=== PATIENT | male | born 1990 | race Caucasian/White ===

== ENCOUNTER 2018-08-18 15:03 | Emergency (ER) | payer MEDICAID, SELFPAY ==
[2018-08-18 15:19] VITALS: BP 135/70; PULSE 106; RESP 16; TEMP 36.6; O2SAT 97
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
== END 2018-08-18 16:55 | disposition home or self-care (01) ==
PROVIDERS: Emergency Provider Emergency Medicine; PCP Nurse Practitioner
DX: S60.221A Contusion of right hand, initial encounter (principal); W51.XXXA Accidental striking against or bumped into by another person, initial encounter
CPT/HCPCS: 99283; 73130; L3809

== ENCOUNTER 2018-11-26 00:54 | Outpatient (CLI) | payer MEDICAID, SELFPAY ==
--- NOTE | 2018-11-26 10:51 | DI.MRI_ITS ---
SYMPTOM/DIAGNOSIS: BACK PAIN NOT RESPONDING TO PT, PAIN CLINIC REFERRAL, RESTLESS LEGS, M54.5,M54.6,G25.81 LUMBAR SPINE MRI: The exam is limited by patient motion. T 1, T 2 and STIR sagittal, T 1 coronal and T 1 and T 2 axial sequences were performed. The vertebral bodies are well maintained in height and show normal marrow signal. The conus medullaris is grossly normal. The intervertebral discs appear intact throughout. There is no evidence of disc herniation, neural foraminal narrowing or central canal stenosis. No paraspinal masses are seen. The kidneys are unremarkable. The aorta is normal in diameter. IMPRESSION: Negative MRI of the lumbar spine.
== END 2018-11-26 01:14 ==
PROVIDERS: PCP Nurse Practitioner; Visit Provider Student in an Organized Health Care Education/Training Program
DX: M54.5 Low back pain (principal); G25.81 Restless legs syndrome; M54.6 Pain in thoracic spine
CPT/HCPCS: 72148

== ENCOUNTER 2019-04-04 06:45 | Emergency (ER) | payer MEDICAID, SELFPAY ==
[2019-04-04 06:50] VITALS: BP 141/92; PULSE 94; RESP 16; TEMP 36.6; O2SAT 96
--- NOTE | 2019-04-04 12:18 | NUR.NOTE ---
0720 pt left without being seen. stated he had to catch the [facility] bus that comes at 0730. did not want to walk home. will come back later. Nursing Note:
== END 2019-04-04 07:21 | disposition other institution (70) ==
LOC: ER 07:09
PROVIDERS: PCP Student in an Organized Health Care Education/Training Program
DX: Z53.21 Procedure and treatment not carried out due to patient leaving prior to being seen by health care provider (principal)

== ENCOUNTER 2019-05-11 09:29 | Emergency (ER) | payer MEDICAID, SELFPAY ==
[2019-05-11 09:32] VITALS: BP 144/104; PULSE 84; RESP 20; TEMP 36.8; O2SAT 98
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
== END 2019-05-11 09:56 | disposition home or self-care (01) ==
LOC: ER 09:58
PROVIDERS: Emergency Provider Emergency Medicine; PCP Student in an Organized Health Care Education/Training Program
DX: S51.012A Laceration without foreign body of left elbow, initial encounter (principal); X99.1XXA Assault by knife, initial encounter
CPT/HCPCS: 12001

== ENCOUNTER 2019-09-16 12:56 | Emergency (ER) | payer MEDICAID, SELFPAY ==
[2019-09-16 12:58] VITALS: BP 161/75; PULSE 69; RESP 18; TEMP 36.7; O2SAT 97
--- NOTE | 2019-09-16 13:04 | ED.GENADUL_ITS ---
Discharge Plan Disposition Patient Disposition: HOME Condition: Good Discharge Details Chief Complaint: DentalOral Clinical Impression: Dental infection Primary Care Provider: Coty Lopez ED Provider: Chikis Ascencio Home Meds and New Rx's Prescriptions: New clindamycin HCl 150 mg capsule 450 mg PO TID Qty: 63 RF: 0 ibuprofen 600 mg tablet 600 mg PO Q6H PRN (Reason: pain) Qty: 30 RF: 0 acetaminophen [Tylenol Extra Strength] 500 mg tablet 500 mg PO Q4H PRN (Reason: pain) Qty: 30 RF: 0 Continued buprenorphine-naloxone [Suboxone] 1 EACH film 22 mg PO DAILY RF: 0 ibuprofen 600 MG tablet 600 mg PO TID PRN PRNQty: 15 RF: 0 acetaminophen [Tylenol Extra Strength] 500 mg tablet 1,000 mg PO Q6H PRN (Reason: pain) Qty: 30 RF: 0 lamotrigine [Lamictal] 100 mg Tablet 100 mg PO DAILY RF: 0 Discharge Instructions Instructions: Dental Abscess (ED) Additional Instructions: Encourage hydration. Tylenol and/or ibuprofen as needed for discomfort. You are given a dental block here today, so hopefully last 6 to 8 hours to help with discomfort. Please take the clindamycin as prescribed. As this can cause diarrhea, please take probiotic. prevention coordinator is helping to arrange for follow-up appointment with dentist and transportation to appointments. If you develop fever/chills, increased swelling or other new/worsening symptoms please seek care urgently once again. Referrals: Coty Lopez DO [Primary Care Provider] - Discharge Data Discharge Date/Time-TO BE ENTERED AT DEPARTURE: 09/16/19 14:17 Medical Decision Making Patient is a 29-year-old male history of opiate dependence, PTSD, tobacco use, hepatitis C, ADHD, anxiety. He is presenting today with acute on chronic right upper dental pain. States that beginning last night, the pain has been quite severe. Took Tylenol a few hours ago with no improvement. Denies any fevers or chills. Worse is eating. Reports that he has a referral to [facility] for dental extraction but has not had a ride to be able to get there. Denies any difficulty breathing, shortness of breath. Is not noted any facial swelling. On exam, patient appears nontoxic. He is hypertensive at 161/75 but vital signs are otherwise normal. He does have poor dentition with a large area of erosion at the #3 tooth on the buccal side. This is the area of discomfort. Will consult with case management regarding transportation of the patient. Patient I discussed risk/benefits of dental block at length. Discussed expected procedural steps. He voiced understanding and wished to proceed. Please see procedure note. Patient was anesthetized with 1% lidocaine plain and 25% bupivacaine. He tolerated this well and had immediate relief of his symptoms. Patient will be treated with antibiotics, received his first dosing here. He has requested prescription for Tylenol and ibuprofen. He was given return precautions. Care management was involved closely had is having trouble to get him an appointment urgently with local dentist for tooth extraction. All his questions and concerns were addressed and is in agreement this plan. HPI General Mode of arrival: ambulatory . Date/Time Provider Initiated Documentation: 09/16/19 13:04 . Limitations to Documentation: no limitations . Information obtained by: patient and RN notes reviewed . History of Present Illness 29 year old M presents to the emergency department with the chief complaint of Right upper dental pain, described as severe and similar to prior episodes, with intensity rated at 10. Quality is described as stabbing, and is localized to the mouth. Patient reports no radiation. Patient started experiencing this week(s) (chronic pain with acute increase in pain this AM) and it has been constant. No relieving factors improve symptom(s), No exacerbating factors reported . Patient notes no other symptoms.; denies cough, diaphoresis, fever/chills, loss of appetite, nausea/vomiting, rash and shortness of breath. Patient did receive the following treatments prior to arrival, none Related Data Home Medications Medication Instructions Recorded Confirmed buprenorphine-naloxone [Suboxone] 22 mg PO DAILY 01/27/18 09/16/19 ibuprofen 600 mg PO TID PRN PRN #15 tab 01/27/18 09/16/19 acetaminophen [Tylenol Extra 1,000 mg PO Q6H PRN #30 tab 08/18/18 09/16/19 Strength] acetaminophen [Tylenol Extra 500 mg PO Q4H PRN #30 tab 09/16/19 Strength] clindamycin HCl 450 mg PO TID #63 cap 09/16/19 ibuprofen 600 mg PO Q6H PRN #30 tab 09/16/19 lamotrigine [Lamictal] 100 mg PO DAILY 09/16/19 09/16/19 Previous Rx's Medication Instructions Recorded ibuprofen 600 mg PO TID PRN PRN #15 tab 01/27/18 acetaminophen [Tylenol Extra 1,000 mg PO Q6H PRN #30 tab 08/18/18 Strength] acetaminophen [Tylenol Extra 500 mg PO Q4H PRN #30 tab 09/16/19 Strength] clindamycin HCl 450 mg PO TID #63 cap 09/16/19 ibuprofen 600 mg PO Q6H PRN #30 tab 09/16/19 Allergies Allergy/AdvReac Type Severity Reaction Status Date / Time prednisone AdvReac Intermediate increased Unverified 09/16/19 13:02 heart rate codeine AdvReac Mild headache/stomach Unverified 09/16/19 13:02 ache Penicillins AdvReac Mild headache/st Unverified 09/16/19 13:02 omachache clindamycin AdvReac Diarrhea Unverified 09/16/19 13:02 General Stated Complaint: DentalOral BRIAN: 4 Review of Systems Constitutional Constitutional: Reports as per HPI, Denies chills, Denies fatigue, Denies fever(s), Denies headache(s) and Denies poor appetite Eyes Eyes: Denies change in vision and Denies irritation ENT Ears, Nose, Mouth, and Throat: Reports as per HPI, Reports dental pain, Denies dysphagia, Denies dizziness, Denies dry mouth, Denies ear discharge, Denies otalgia, Reports facial pain, Denies headache(s), Denies hoarseness, Denies lip swelling, Denies nasal congestion, Denies odynophagia and Denies sore throat Cardiovascular Cardiovascular: Reports as per HPI and Denies chest pain Respiratory Respiratory: Reports as per HPI and Denies cough Gastrointestinal Gastrointestinal: Reports as per HPI, Denies dysphagia, Denies nausea, Denies odynophagia and Denies vomiting Integumentary/Breasts Skin/Breast: Reports as per HPI, Denies erythema, Denies rash and Denies skin pain Neurologic Neurologic: Reports as per HPI, Denies dizziness and Denies headache(s) Endocrine Endocrine: Denies fatigue Allergic/Immunologic Allergic/Immunologic: Denies lip swelling [facility] Medical History ADHD (attention deficit hyperactivity disorder) Anxiety Hepatitis C Opioid dependence Restless legs Tobacco abuse disorder Social History Smoking/Tobacco Use Status: Current every day Tobacco Type: cigarettes Alcohol Intake: former Drug use: Current Sobriety Substance use type: former substance user Do you feel safe at home: Yes Do you feel safe in your relationship?: Yes Exam Const General: cooperative, healthy appearing, comfortable, no acute distress, well developed and well groomed Nutritional Appearance: average body habitus and well nourished Orientation: alert and awake [facility] Head: normal to inspection, normocephalic and atraumatic Ears: hearing grossly normal bilaterally, external ears normal and TM's normal bilaterally General nose exam: external nose normal and nares normal Face and sinus: normal facial exam, sinuses nontender and face symmetric Mouth: oral mucosae normal, lip normal, tongue normal, salivary ducts normal, oropharynx normal, moist mucous membranes, no muffled voice, no trismus and No restricted motion Teeth and gingiva: poor dentition (large eroded area #3 tooth, buccal sided pain) Throat: posterior oropharynx normal, tonsils normal and uvula midline Eyes General: appearance normal, both eyes and all related structures Neck Neck: normal visual inspection, full ROM, no lymphadenopathy, supple and no anterior neck swelling Resp Effort & Inspection: normal respiratory effort, able to speak in complete sentences and no respiratory distress Auscultation: clear to auscultation bilaterally, no rales, no rhonchi and no wheezes Cardio Rate: regular rate Rhythm: regular rhythm Heart Sounds: S1 normal and S2 normal Skin General skin exam: no rashes or lesions noted Trauma: no lacerations or abrasions Neuro General: alert and awake Cognition: normal cognition Speech: speech normal Gait: normal gait Psych Appearance: grossly normal and well kempt Mental Status: mental status grossly normal Speech and Movement: speech and movement normal Course Vital Signs Vital signs: Vital Signs Temperature 36.7 C 09/16/19 12:58 Pulse 69 09/16/19 12:58 Respiratory Rate 18 09/16/19 12:58 Blood Pressure 161/75 H 09/16/19 12:58 Pulse Oximetry 97 09/16/19 12:58 Temperature 36.7 C 09/16/19 12:58 Temperature Source Skin 09/16/19 12:58 Pulse 69 09/16/19 12:58 Respiratory Rate 18 09/16/19 12:58 Respiratory Effort Non-Labored 09/16/19 13:03 Blood Pressure 161/75 H 09/16/19 12:58 Blood Pressure Position Sitting 09/16/19 12:58 Pulse Oximetry 97 09/16/19 12:58 Oxygen Delivery Method Room Air 09/16/19 12:58 Oxygen Flow Rate 0 09/16/19 12:58 Pain Level 10 09/16/19 12:58 Procedures Nerve Block Nerve Block 1: Time out performed: Yes Local Anesthetic: Lidocaine 1% and Bupivicaine 0.25% Amount of anesthesia used (mL): 1.5 Side: right Intraoral Nerve Block: supraperiosteal Procedure Successful: Yes Patient Tolerated Procedure: well Complications: none
[2019-09-16] MEDS: Clindamycin 150 MG CAP 450 MG PO (13:27)
[2019-09-16] MEDS: Ibuprofen 600 MG TAB PO (13:27)
[2019-09-16] MEDS: Bupivacaine 0.25% Pres-Free 10 ML VIAL IJ (13:28)
[2019-09-16] MEDS: Acetaminophen 500 MG TAB PO (13:28)
--- NOTE | 2019-09-16 13:41 | NUR.NOTE ---
Nursing Note: pt and provider discussed administration of clindamycin. pt reports that he thinks he had nausea and diarrhea.
== END 2019-09-16 14:17 | disposition home or self-care (01) ==
PROVIDERS: Emergency Provider Physician Assistant; PCP Student in an Organized Health Care Education/Training Program
DX: K08.89 Other specified disorders of teeth and supporting structures (principal); K04.7 Periapical abscess without sinus
CPT/HCPCS: 64400; 99283

== ENCOUNTER 2020-05-29 10:53 | Emergency (ER) | payer MEDICAID, SELFPAY ==
[2020-05-29 11:04] VITALS: BP 117/80; PULSE 84; RESP 18; TEMP 37.1; O2SAT 98
--- NOTE | 2020-05-29 11:12 | W.ED.GENAD ---
Discharge Plan Disposition Patient Disposition: AGAINST MEDICAL ADVICE Condition: Serious Discharge Details Chief Complaint: Cellulitis Clinical Impression: Cellulitis of foot, right Primary Care Provider: Coty Lopez ED Provider: Cristine Miller [place] Meds and New Rx's Prescriptions: New cephalexin 500 mg tablet 500 mg PO BID 10 Days Qty: 20 RF: 0 No Action buprenorphine-naloxone [Suboxone] 1 EACH film 22 mg PO DAILY RF: 0 ibuprofen 600 MG tablet 600 mg PO TID PRN PRNQty: 15 RF: 0 acetaminophen [Tylenol Extra Strength] 500 mg tablet 1,000 mg PO Q6H PRN (Reason: pain) Qty: 30 RF: 0 lamotrigine [Lamictal] 100 mg Tablet 100 mg PO DAILY RF: 0 ibuprofen 600 mg tablet 600 mg PO Q6H PRN (Reason: pain) Qty: 30 RF: 0 gabapentin 400 mg Capsule 400 mg PO DAILY RF: 0 gabapentin 300 mg Capsule 300 mg PO BID RF: 0 dexmethylphenidate [Focalin XR] 40 mg Capsule,Er Biphasic 50-50 40 mg PO DAILY RF: 0 Discharge Instructions Instructions: Cellulitis (ED) Additional Instructions: At this time I do recommend admission and further treatment and work-up for your right foot infection by leaving AGAINST MEDICAL ADVICE you do understand that this could be worsening disabled, worsening infection including but not limited to and loss of limb. Please take antibiotic as prescribed. Follow up with primary care provider in 3-5 days. Return to ED sooner if any worsening or concerns. Increase oral fluids. Please take Tylenol or Ibuprofen with food every 4-6 hours as needed for pain and swelling. Referrals: Coty Lopez DO [Primary Care Provider] - Discharge Data Discharge Date/Time-TO BE ENTERED AT DEPARTURE: 05/29/20 12:20 Medical Decision Making 30-year-old homeless male presents to the ER with right foot cellulitis which he reports has been getting worse for the last 2 weeks. He states that he jumped over a fence receiving a puncture wound to the right medial area of his foot over the last 24 hours increased erythema mild red streaks noted to his right inner ankle, increased pain, 2 bubbles which have popped up over the last 24 hours. He does have an open wound distally at the base of his great toe which he reports is been draining. He associated symptoms include headache, sickly feeling, denies any nausea vomiting diarrhea abdominal pain. He is a smoker and and does endorse marijuana and Suboxone use denies any other illicit drugs or alcohol. He does have a history of IV drug abuse disorder but denies any recent use. Does have a history of PTSD, restless leg syndrome, opioid dependence, hepatitis C, opioid use disorder, ADD, anxiety. Awaiting lab draw, RN was able to get IV access no labs. When discussing potential admission with patient he is declining admission at this time. Ancef IV ordered and blood cultures x2. Lorazepam 1 mg IV ordered for patient's anxiety. 1151: EXAM: XR FOOT RT COMPLETE CLINICAL HISTORY: Cellulitis, R/O gas. TECHNIQUE: 2D digital imaging was performed. COMPARISON: CR RIGHT FOOT COMPLETE from 06/04/2017 FINDINGS: BONES: No acute fracture is present. No bony destructive lesion is seen. JOINTS: No dislocation present. SOFT TISSUE: There is soft tissue swelling over the dorsum foot. There is no abnormal gas collection. IMPRESSION: Soft tissue swelling. No soft tissue gas. 1217: Labs at bedside for lab draw. Patient is becoming increasingly anxious, irate, using obscenities at staff, has not received his IV antibiotic yet requests to leave AMA. At this time the only lab result that we have available to us is a CBC which shows a white blood cell count of 14,000, hemoglobin 10.9, hematocrit 35.2, platelets are 416, absolute neutrophils 10.82. Patient requesting to leave AMA. Encouraged to stay and be admitted, stressed the importance seriousness of patient condition patient verbalizes understanding. The patient appears somewhat sober and denies being under the influence of any known substances. Discussed risks and benefits with patient. Patient verbalizes understanding of situation and the risks of leaving including worsening condition, developing disability, including but not limited to .Discussed results of labs and imaging, if they were performed and recommendations for further treatment and/or observation. The patient verbalizes understanding of the results discussed. Every effort was made to involve family if appropriate and situation discussed. At this time patient has opted to leave against medical advice. Patient is alert and oriented and has the capacity to make own decisions. Patient was given prescription for cephalexin 500 mg twice daily x10 days and did sign AMA paperwork. HPI General Mode of arrival: wheelchair. Date/Time Provider Initiated Documentation: 05/29/20 10:55. Limitations to Documentation: no limitations. Information obtained by: patient. HPI Narrative: 30-year-old homeless male presents to the ER with right foot cellulitis which he reports has been getting worse for the last 2 weeks. He states that he jumped over a fence receiving a puncture wound to the right medial area of his foot over the last 24 hours increased erythema mild red streaks noted to his right inner ankle, increased pain, 2 bubbles which have popped up over the last 24 hours. He does have an open wound distally at the base of his great toe which he reports is been draining. He associated symptoms include headache, sickly feeling, denies any nausea vomiting diarrhea abdominal pain. He is a smoker and and does endorse marijuana and Suboxone use denies any other illicit drugs or alcohol. He does have a history of IV drug abuse disorder but denies any recent use. Does have a history of PTSD, restless leg syndrome, opioid dependence, hepatitis C, opioid use disorder, ADD, anxiety. Related Data Home Medications Medication Instructions Recorded Confirmed buprenorphine-naloxone [Suboxone] 22 mg PO DAILY 01/27/18 05/29/20 ibuprofen 600 mg PO TID PRN PRN #15 tab 01/27/18 05/29/20 acetaminophen [Tylenol Extra 1,000 mg PO Q6H PRN #30 tab 08/18/18 05/29/20 Strength] ibuprofen 600 mg PO Q6H PRN #30 tab 09/16/19 05/29/20 lamotrigine [Lamictal] 100 mg PO DAILY 09/16/19 05/29/20 cephalexin 500 mg PO BID 10 Days #20 tab 05/29/20 dexmethylphenidate [Focalin XR] 40 mg PO DAILY 05/29/20 05/29/20 gabapentin 300 mg PO BID 05/29/20 05/29/20 gabapentin 400 mg PO DAILY 05/29/20 05/29/20 Previous Rx's Medication Instructions Recorded ibuprofen 600 mg PO TID PRN PRN #15 tab 01/27/18 acetaminophen [Tylenol Extra 1,000 mg PO Q6H PRN #30 tab 08/18/18 Strength] ibuprofen 600 mg PO Q6H PRN #30 tab 09/16/19 cephalexin 500 mg PO BID 10 Days #20 tab 05/29/20 Allergies Allergy/AdvReac Type Severity Reaction Status Date / Time prednisone AdvReac Intermediate increased Unverified 05/29/20 11:11 heart rate codeine AdvReac Mild headache/stomach Unverified 05/29/20 11:11 ache Penicillins AdvReac Mild headache/st Unverified 05/29/20 11:11 omachache clindamycin AdvReac Diarrhea Unverified 05/29/20 11:11 General Stated Complaint: Cellulitis BRIAN: 3 Review of Systems All systems reviewed & are unremarkable except as noted in HPI and below Musculoskeletal Musculoskeletal: Reports limited range of motion (Right ankle) Comments: Increased erythema, wounds, drainage swelling and pain to right foot. [facility] Medical History ADHD (attention deficit hyperactivity disorder) Anxiety Hepatitis C Opioid dependence Restless legs Tobacco abuse disorder Family History Mother Alcohol abuse Father Alcohol abuse Social History Smoking/Tobacco Use Status: Current every day Tobacco Type: cigarettes Alcohol Intake: former Drug use: Daily Substance use type: marijuana Do you feel safe at home: Yes Do you feel safe in your relationship?: Yes Exam Narrative Exam Narrative: Constitutional: Alert and oriented x3. Appears stated age. Normal body habitus. Pressured speech. Head: Normocephalic, no trauma. Eyes: Pupils PERRLA, pupils are 2 mm bilaterally, Red reflex noted, EOM's intact. Eyelids symmetrical without lesions, discharge, or swelling. ENT: Bilateral TM's WNL, External ear normal to inspection, no mastoid TTP, swelling, or erythema, Nasal turbinates WNL, no nasal discharge. Normal dentition, Posterior pharynx WNL, no exudate. Chest: RRR, Normal S1, S2, distal pulses intact. Resp: Lungs expiratory rales noted initially on left upper and lower lobe, scattered wheezes, . Musculoskeletal: Unable to assess gait at this time, right foot erythema, swelling, red streaks noted just medially to the medial malleolus. Decreased flexion and extension to right ankle, see extremity exam below Skin: Capillary refill less than 2 sec. Neurologic: Cranial nerves II-XII intact. Alert and oriented x 3. DTR's intact. Hematologic/Lymphatic: No ecchymosis, no lymphadenopathy. Extrem Ankle/foot/toe images: 1. Erythema, swelling, and red streaks, 2. Open circular wound 3. Circular raised area with central fluctuance 4. Circular raised area of central fluctuance Course Vital Signs Vital signs: Vital Signs Temperature 37.1 C 05/29/20 11:04 Pulse 84 05/29/20 11:04 Respiratory Rate 18 05/29/20 11:04 Blood Pressure 117/80 05/29/20 11:04 Pulse Oximetry 98 05/29/20 11:04 Temperature 37.1 C 05/29/20 11:04 Temperature Source Temporal Artery Scan 05/29/20 11:04 Pulse 84 05/29/20 11:04 Respiratory Rate 18 05/29/20 11:04 Blood Pressure 117/80 05/29/20 11:04 Blood Pressure Position Sitting 05/29/20 11:04 Pulse Oximetry 98 05/29/20 11:04 Oxygen Delivery Method Room Air 05/29/20 11:04 Oxygen Flow Rate 0 05/29/20 11:04 Pain Level 5 05/29/20 11:04
--- NOTE | 2020-05-29 11:45 | DI.RAD_ITS ---
EXAM: XR FOOT RT COMPLETE CLINICAL HISTORY: Cellulitis, R/O gas. TECHNIQUE: 2D digital imaging was performed. COMPARISON: CR RIGHT FOOT COMPLETE from 06/04/2017 FINDINGS: BONES: No acute fracture is present. No bony destructive lesion is seen. JOINTS: No dislocation present. SOFT TISSUE: There is soft tissue swelling over the dorsum foot. There is no abnormal gas collection . IMPRESSION: Soft tissue swelling. No soft tissue gas. DATA REPOSITORY: RADIATION DOSE DELIVERED:
[2020-05-29] MEDS: LORazepam 1 MG TAB PO (11:56)
[2020-05-29] MEDS: Normal Saline 1,000 ML 1000 ML IV (11:57)
[2020-05-29 12:23] LABS: Abs Immature Grans 0.04 10^3/uL (0.0-0.06); Absolute Basophil Count 0.07 10^3/uL (0.0-0.2); Absolute Eosinophil Count 0.38 10^3/uL (0.0-0.7); Absolute Lymphocyte Count 2.08 10^3/uL (1.2-3.4); Absolute Monocyte Count 0.66 10^3/uL (0.1-0.8); Absolute Neutrophil Count 10.82 10^3/uL (1.2-6.7); Basophils % 0.5; Eosinophils % 2.7; HCT 33.2 % (40.0-50.0); HGB 10.9 g/dL (13.5-17.5); Immature Grans % 0.3; Lymphocytes % 14.8; MCH 30.8 pg (27.0-33.0); MCHC 32.8 % (32.0-36.0); MCV 93.8 fL (80-95); MPV 9.4 fL (8.0-11.0); Monocytes % 4.7; Platelet Count 416 10^3/uL (130-400); RBC 3.54 10^6/uL (4.36-5.78); RDW 12.4 % (11.8-14.1); RDW-SD 42.9 fL; WBC 14.05 10^3/uL (4.4-10.8)
== END 2020-05-29 12:20 | disposition left against medical advice (07) ==
LOC: ER 12:31
PROVIDERS: Emergency Provider Registered Nurse Emergency; PCP Student in an Organized Health Care Education/Training Program
DX: S91.331A Puncture wound without foreign body, right foot, initial encounter (principal); L03.115 Cellulitis of right lower limb; W26.8XXA Contact with other sharp object(s), not elsewhere classified, initial encounter; Z53.29 Procedure and treatment not carried out because of patient's decision for other reasons; Z59.0 Homelessness
CPT/HCPCS: 80053; 87040; 99283; 73630; 83605; 83735; 85025; 86140; 99284

== ENCOUNTER 2020-07-24 12:56 | Emergency (ER) | payer MEDICAID, SELFPAY ==
[2020-07-24 12:38] VITALS: PULSE 128; TEMP 36.9; O2SAT 97
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
--- NOTE | 2020-07-24 13:06 | DI.RAD_ITS ---
EXAM: XR HAND RT COMPLETE CLINICAL HISTORY: Trauma. TECHNIQUE: 2D digital imaging was performed. COMPARISON: CR XR hand RT complete from 08/18/2018 FINDINGS: BONES: No acute fracture is present. No bony destructive lesion is seen. JOINTS: No dislocation present. SOFT TISSUE: Normal. IMPRESSION: Unremarkable radiographs of the right hand. DATA REPOSITORY: RADIATION DOSE DELIVERED:
[2020-07-24] MEDS: Ibuprofen 600 MG TAB PO (13:10)
== END 2020-07-24 14:00 | disposition home or self-care (01) ==
LOC: ER 13:59
PROVIDERS: Emergency Provider Registered Nurse Emergency; PCP Student in an Organized Health Care Education/Training Program
DX: S63.8X1A Sprain of other part of right wrist and hand, initial encounter (principal); S60.511A Abrasion of right hand, initial encounter; Y04.0XXA Assault by unarmed brawl or fight, initial encounter
CPT/HCPCS: 29125; 99283; 73130; L3908

== ENCOUNTER 2020-12-08 09:00 | Emergency (ER) | payer MEDICAID, SELFPAY ==
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
[2020-12-08 09:07] VITALS: BP 137/94; PULSE 71; RESP 16; TEMP 36.6; O2SAT 97
[2020-12-08 09:56] LABS: *AMPHETAMINES SCREEN URINE Negative (Negative); *BARBITURATES SCREEN URINE Negative (Negative); *BENZODIAZEPINES SCREEN URINE Negative (Negative); Cannabinoids THC POSITIVE (Negative); Cocaine Screen,Urine POSITIVE (Negative); METHADONE URINE SCREEN Negative (Negative); OPIATES URINE SCREEN Negative (Negative)
[2020-12-08 10:13] LABS: Tricyclic Antidepressants POSITIVE (Negative)
[2020-12-08 10:29] LABS: Abs Immature Grans 0.01 10^3/uL (0.0-0.06); Absolute Basophil Count 0.03 10^3/uL (0.0-0.2); Absolute Eosinophil Count 0.13 10^3/uL (0.0-0.7); Absolute Lymphocyte Count 1.63 10^3/uL (1.2-3.4); Absolute Monocyte Count 0.24 10^3/uL (0.1-0.8); Basophils % 0.5; Eosinophils % 2.3; HCT 40.4 % (40.0-50.0); HGB 13.3 g/dL (13.5-17.5); Immature Grans % 0.2; Lymphocytes % 28.4; MCH 30.9 pg (27.0-33.0); MCHC 32.9 % (32.0-36.0); Monocytes % 4.2; Neutrophils % 64.4; Nucleated RBC 0 %; Platelet Count 252 10^3/uL (130-400); RDW 12.8 % (11.8-14.1); RDW-SD 44.1 fL; WBC 5.74 10^3/uL (4.4-10.8)
[2020-12-08] MEDS: Clindamycin 150 MG CAP 450 MG PO (10:34)
[2020-12-08] MEDS: Ibuprofen 600 MG TAB PO (10:35)
[2020-12-08 10:42] LABS: ALT 17 U/L (16-63); AST 15 U/L (15-37); Albumin 4.3 g/dL (3.4-5.0); Alkaline Phosphatase 90 U/L (46-116); Anion Gap 6.9 mmol/L (3-11); BUN 16 mg/dL (7-18); Bilirubin, Total 0.3 mg/dL (0.2-1.0); CO2 29.1 mmol/L (21.0-32.0); CREATININE 0.7 mg/dL (0.70-1.30); Calcium 8.8 mg/dL (8.5-10.1); Chloride 105 mmol/L (98-107); Glucose 86 mg/dL (74-106); Potassium 3.9 mmol/L (3.5-5.1); Sodium 141 mmol/L (136-145); Total Protein 7.4 g/dL (6.4-8.2)
[2020-12-08 10:52] LABS: ETHANOL BLOOD < 3.0 mg/dL (<3)
[2020-12-08] MEDS: Clindamycin 150 MG CAP, 12 CAPS/BTL 450 MG PO (11:15)
--- NOTE | 2020-12-08 11:34 | PDOC.MHCN_ITS ---
Date of service: 12/08/20 Time of Service: 11:34 Mental Health Crisis Note Presenting Issue How did you arrive at the ED and why did you come: Pt arrived to the ER of his own choosing. He was reporting thoughts of SI and HI. Precipitating Factors Pt denied SI and HI stating he only is feeing this way because he does not have housing and is frustrated. He thought if he went to [facility] he would at least have a place to stay and food in his belly. Disposition BEHAVIOR: Pt is very hyper and reports a diagnosis of ADHD. He is cooperative with the interview and engaged. EYE CONTACT: Pt's eye contact is normal. MOOD: Pt reported that he is frustrated and presents as in a constant fight or flight position. AFFECT: Pt's affect is normal. APPETITE: Pt reported that he is unable to eat as his has some severe oral issues. SLEEP(trouble falling/staying asleep: Pt reported when he has a place to stay he sleeps well but when he has to sleep under the bridge he does not sleep well at all. Plan Pt gave permission to sign a ESTHER for [facility]. This clinician will outreach to see if they can access housing form him. This clinician will ensure he has a follow up appointment with a med provider at [facility]. This clinician will make a referral to case management to help Pt get set up with a dentist to take care of his significant oral issues. Signature Clinician's Name/Title: April Canales MS, [facility] Emergency Services Clinician, [facility]
== END 2020-12-08 11:12 | disposition home or self-care (01) ==
PROVIDERS: Emergency Provider Physician Assistant; PCP Student in an Organized Health Care Education/Training Program
DX: F41.8 Other specified anxiety disorders (principal); K02.9 Dental caries, unspecified; Z73.3 Stress, not elsewhere classified; Z59.1 Inadequate housing; R45.851 Suicidal ideations; R45.850 Homicidal ideations
CPT/HCPCS: 36415; 80053; 80307; 99283; 80320; 85025

== ENCOUNTER 2023-04-15 14:13 | Outpatient (REF) | payer MEDICAID, SELFPAY | END 2023-04-15 14:14 | disposition home or self-care (01) | LOC: LBN 14:13 | PROVIDERS: Visit Provider Nurse Practitioner Family | DX: L08.89 Other specified local infections of the skin and subcutaneous tissue (principal) | CPT/HCPCS: 87077; 87070; 87186; 87205 ==

== ENCOUNTER 2023-06-16 15:40 | Emergency (ER) | payer MEDICAID, SELFPAY ==
--- NOTE | 2023-06-16 15:43 | ED.GENADUL_ITS ---
Discharge Plan Disposition Patient Disposition: Home Discharge Details Clinical Impression: Closed metaphyseal fracture of third metatarsal bone of left foot Primary Care Provider: Unknown,Unknown ED Provider: Chi Gonsales Home Meds and New Rx's Prescriptions: Continued buprenorphine-naloxone [Suboxone] 1 EACH film 22 mg PO DAILY Patient Comments: pt states no longer taking 06/16/23 ibuprofen 600 MG tablet 600 mg PO TID PRN PRNQty: 15 0RF Patient Comments: pt states no longer taking 06/16/23 Rx Instructions: Take 1 tablet every 8 hours if needed for pain acetaminophen [Tylenol Extra Strength] 500 mg tablet 1,000 mg PO Q6H PRN (Reason: pain) Qty: 30 0RF Patient Comments: pt states no longer taking 06/16/23 lamotrigine [Lamictal] 100 mg Tablet 100 mg PO DAILY Patient Comments: pt states no longer taking 06/16/23 ibuprofen 600 mg tablet 600 mg PO Q6H PRN (Reason: pain) Qty: 30 0RF Patient Comments: pt states no longer taking 06/16/23 Sublocade 300 mg/1.5 mL solution, extended rel syringe 300 mg SUBCUT QWEEK Sublocade 300 mg/1.5 mL solution, extended rel syringe SUBCUT gabapentin 400 mg Capsule 600 mg PO DAILY Patient Comments: pt states no longer taking 06/16/23 gabapentin 300 mg Capsule 800 mg PO TID Patient Comments: pt states no longer taking 06/16/23 dexmethylphenidate [Focalin XR] 40 mg Capsule,Er Biphasic 50-50 40 mg PO DAILY Patient Comments: pt states no longer taking 06/16/23 Discharge Instructions Additional Instructions: Please read all of the information that accompanies these instructions. You were seen in the emergency department for your foot pain. You were found to have a fracture of your third metatarsal for which you are receiving a boot. Please do not bear weight on your left foot. Please use crutches. Please call the podiatry department for a follow-up appointment early next week. Please return to the emergency department if develop worsening pain or swelling. For your pain please take medications as follows: 1. Take acetaminophen (Tylenol), 1,000 mg (two 500 mg tabs) every 6 hours 2. Take ibuprofen (Advil), 400 mg every 6 hours. Medical Decision Making This is an overall very well-appearing normothermic and not tachycardic 33-year-old male with left ankle pain and swelling status post injury several days ago concerning for fracture versus sprain. Patient has been walking extensively on his feet and I feel that this is the cause of his swelling. He is no open sores on his foot although he does have a small sore on the posterior aspect of his left leg. His sores do not appear to be infected. He has no calf tenderness to suggest DVT though I had initially ordered a duplex today this patient as he arrived just as ultrasound was leaving for the day and I was not sure whether or not he was having calf or ankle pain. He does have swelling in his contralateral right lower extremity but is not short of breath nor hypoxic so my suspicion for CHF is exceedingly low. No chest pain to suggest PE. No pain out of proportion to left lower extremity to suggest necrotizing soft tissue infection. Compartments soft so I am not concerned for compartment syndrome. No fluctuance to suggest abscess. No erythema to suggest cellulitis. Will reassess following plain films and encouraged ice elevation and treat with acetaminophen as patient has had ibuprofen at home if plain films are negative for any acute osseous abnormalities. Left foot warm and well-perfused so not concern for critical limb ischemia as I do not feel the patient required a CT angiogram. 5:14 PM Patient was found to have a nondisplaced fracture of his third left metatarsal with soft tissue swelling. We will place him in a walking boot and making nonweightbearing. I asked health screening unit registered nurse Connie to have the patient seen in the next 3 days by podiatry. Chronic conditions affecting the care of the patient: Hepatitis C History obtained from an outside historian: N/A External record review: No [facility] [place] Medications: Acetaminophen Social determinants of health affecting disposition: Living in transitional housing Management discussed with: N/A Treatment/interventions considered: Duplex study however deferred given no calf pain Response to therapies provided: Slightly improved pain following ice and acetaminophen HPI General Date/Time Provider Initiated Documentation: 06/16/23 15:43 . HPI Narrative: This is a 33-year-old male with reported history of neuropathy and bilateral lower extremity swelling for the past week now with worsening left ankle and foot pain with swelling. He reports that several days ago he stepped off of a step helping someone move. As he slipped he reported pain in his left ankle. He reports that he has been walking extensively on his left ankle subsequently and had worsening pain as result. He states he has had decreased ability to range his left foot secondarily to pain. He denies fevers chills chest pain shortness of breath nausea and vomiting. He has been attempting treatment at home with elevation and ibuprofen but these have not improved his symptoms. Related Data Home Medications Medication Instructions Recorded Confirmed buprenorphine 8 mg-naloxone 2 mg 22 mg PO DAILY 01/27/18 12/08/20 sublingual film (Suboxone) ibuprofen 600 mg tablet 600 mg PO TID PRN PRN #15 tabs 01/27/18 12/08/20 acetaminophen 500 mg tablet 1,000 mg PO Q6H PRN pain #30 tabs 08/18/18 12/08/20 (Tylenol Extra Strength) ibuprofen 600 mg tablet 600 mg PO Q6H PRN pain #30 tabs 09/16/19 12/08/20 lamotrigine 100 mg tablet 100 mg PO DAILY 09/16/19 12/08/20 (Lamictal) dexmethylphenidate 40 mg 40 mg PO DAILY 05/29/20 12/08/20 capsule,extended release [id number] (Focalin XR) gabapentin 300 mg capsule 800 mg PO TID 05/29/20 12/08/20 gabapentin 400 mg capsule 600 mg PO DAILY 05/29/20 12/08/20 buprenorphine 300 mg/1.5 mL 300 mg subcut QWEEK 06/16/23 06/16/23 solution,exten.rel.subcutaneous syringe (Sublocade) buprenorphine 300 mg/1.5 mL mg subcut 06/16/23 06/16/23 solution,exten.rel.subcutaneous syringe (Sublocade) Previous Rx's Medication Instructions Recorded ibuprofen 600 mg tablet 600 mg PO TID PRN PRN #15 tabs 01/27/18 acetaminophen 500 mg tablet 1,000 mg PO Q6H PRN pain #30 tabs 08/18/18 (Tylenol Extra Strength) ibuprofen 600 mg tablet 600 mg PO Q6H PRN pain #30 tabs 09/16/19 Allergies Allergy/AdvReac Type Severity Reaction Status Date / Time prednisone AdvReac Intermediate increased Unverified 06/16/23 15:49 heart rate codeine AdvReac Mild headache/stomach Unverified 06/16/23 15:49 ache Penicillins AdvReac Mild headache/st Unverified 06/16/23 15:49 omachache clindamycin AdvReac Diarrhea Unverified 06/16/23 15:49 General BRIAN: 2 PFSH All Active Problems (Updated 06/16/23 @ 17:16 by Chi Gonsales MD) Closed metaphyseal fracture of third metatarsal bone of left foot (Acute) Cyclothymia (Acute) Opioid use disorder, moderate, on maintenance therapy, dependence (Acute) PTSD (post-traumatic stress disorder) (Acute) Tobacco use disorder (Acute 09/08/15) Began age 13, 1ppd Sleeping difficulty (Acute 12/22/15) Anxiety, unmanaged ADHD and restless legs are the reported main reason for sleeping difficulty. ik/ Restless legs (Acute 12/22/15) Lyrica supposedly helped, but Neuro consult requested. He is now on DIEGO, may re-start Lyrica once DIEGO Rx completed. Opioid dependence (Acute 09/08/15) began age 14, IV usage reports to be off all opioids/heroin/methadone, -09/2017. note: recent methadone relapse, spring 2016 Hepatitis C (Acute 09/08/15) Back pain of thoracolumbar region (Acute 12/22/15) Hx scoliosis Attention-deficit hyperactivity disorder, unspecified type (Acute 09/08/15) Per chart review: Fabian was diagnosed with ADHD by Dr. Jose his development officer. No known psych evaluation. Hx of Wellbutrin XL BID. Per Fabian .. has done well with Focalin. Vyvanse did not work well for him (discussed 10/12/17, ik) Anxiety (Acute 09/14/15) Has not seen counselor/theerapist in weeks. Anxiety reported to stem from unmanaged ADHD .. Pt claims he remains clear of past negative associates/contacts and avoids alcohol/substances, even asking acquaintances who may be drunk to leave. 09/2017 Medical History (Updated 06/16/23 @ 17:16 by Chi Gonsales MD) ADHD (attention deficit hyperactivity disorder) Anxiety Hepatitis C Opioid dependence Restless legs Tobacco abuse disorder Family History Mother Alcohol abuse Father Alcohol abuse Social History Smoking/Tobacco Use Status: Current every day Tobacco Type: cigarettes Smoking risk assessment performed?: Yes Alcohol Intake: former Drug use: Daily Substance use type: marijuana Do you feel safe at home: Yes Do you feel safe in your relationship?: Yes Exam Narrative Exam Narrative: General: Well-appearing in no acute distress speaking in complete sentences. Head: Normocephalic, atraumatic. Eye: Extraocular eye movements intact. No conjunctival injection. No scleral icterus. Ear, nose, mouth, throat: Grossly normal inspection. Normal voice, handling secretions normally. Neck: Trachea midline. Cardiovascular: Well-perfused distal extremities. Respiratory: Nonlabored respiration. Gastrointestinal: Nondistended abdomen. Musculoskeletal: Left lower extremity with swelling and tenderness to bilateral malleoli and throughout left foot. Left foot warm well perfused with 2+ PT and DP pulses. Patient tenderness throughout left foot. Cap refill less than 2 seconds in left toes. Sensation intact in the dorsal webspace between the first and second toes. On the posterior aspect of the left calf there is a small healing ulcerated area approximately 1 x 1 cm. Patient is able to dorsi and plantarflex with 3-5 strength on the left limited secondarily to pain. Skin: Normal for age and race, grossly normal temperature and turgor. No acute rash. Neurologic: Alert and appropriate, no apparent acute deficits. Psychiatric: Mood and manner are appropriate. Grooming and personal hygiene are appropriate.
[2023-06-16 15:44] VITALS: BP 113/73; PULSE 99; RESP 18; TEMP 37.3; O2SAT 99
--- NOTE | 2023-06-16 15:45 | DI.RAD_ITS ---
Exam(s) XR FOOT LT COMPLETE XR ANKLE LT COMPLETE EXAM: XR ANKLE LT COMPLETE CLINICAL HISTORY: Left ankle pain TECHNIQUE: 2D digital imaging was performed. Three views of the ankle. Three views of the foot. COMPARISON: CR RIGHT ANKLE COMPLETE from 06/04/2017 CR XR FOOT LT COMPLETE from 06/16/2023 FINDINGS: BONES: A nondisplaced fracture mid shaft 3rd metatarsal. No additional fractures. No bony destructi ve lesion is seen. JOINTS:The ankle mortise is normally aligned. SOFT TISSUE: Marked soft tissue swelling around ankle and at dorsum of foot. No foreign body or gas collection. IMPRESSION: Nondisplaced fracture of the 3rd metatarsal. Marked soft tissue swelling. DATA REPOSITORY: RADIATION DOSE DELIVERED:
[2023-06-16] MEDS: Acetaminophen 500 MG TAB 1000 MG PO (16:05)
--- NOTE | 2023-06-16 17:15 | NUR.NOTE ---
Nursing Note: PT needs follow up with [facility] podiatry early next week to recheck fx of the 3rd metatarsal. Lesly, ED
--- NOTE | 2023-06-18 08:49 | NUR.NOTE ---
Nursing Note: Accessed chart for referral to podiatry.
--- NOTE | 2023-06-22 17:39 | NUR.NOTE ---
Accessed chart for [facility] billing. Nursing Note:
== END 2023-06-16 17:38 | disposition home or self-care (01) ==
PROVIDERS: Emergency Provider Emergency Medicine
DX: S92.332A Displaced fracture of third metatarsal bone, left foot, initial encounter for closed fracture (principal); X58.XXXA Exposure to other specified factors, initial encounter
CPT/HCPCS: 99284; 73610; 73630; 99283

== ENCOUNTER 2024-01-31 12:46 | Emergency (ER) | payer MEDICAID, SELFPAY ==
[2024-01-31 12:49] VITALS: BP 119/88; PULSE 98; RESP 16; TEMP 38.3; O2SAT 98
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
[2024-01-31 13:22] VITALS: PULSE 80; RESP 18; TEMP 37.2
== END 2024-01-31 13:22 | disposition home or self-care (01) ==
LOC: ER 14:16
PROVIDERS: Emergency Provider Physician Assistant
DX: S01.111A Laceration without foreign body of right eyelid and periocular area, initial encounter (principal); T59.3X1A Toxic effect of lacrimogenic gas, accidental (unintentional), initial encounter; F17.210 Nicotine dependence, cigarettes, uncomplicated; Y04.0XXA Assault by unarmed brawl or fight, initial encounter; Y92.148 Other place in prison as the place of occurrence of the external cause
CPT/HCPCS: 12011; 99283

== ENCOUNTER 2025-03-02 09:57 | Emergency (ER) | payer OTHER, SELFPAY ==
--- NOTE | 2025-03-02 09:45 | RT.EKG_ITS ---
APPROVED REPORT Exam: Resting ECG Reason for Exam: EKG changes Patient Location: E HR:93 bpm ECG Measurements Heart Rate 93 AXIS SD 135 P 41 QRSd 87 QRS 82 QT 362 T -4 QTc 450 Conclusion Sinus rhythm...normal P axis, V-rate 60- 99 Low voltage, precordial leads...precordial leads <1.0mV Consider anteroseptal infarct...Q >30mS, dimin R, V1-V2 No Occlusion TX
[2025-03-02 09:58] VITALS: BP 125/88; PULSE 88; RESP 16; TEMP 36.6
--- NOTE | 2025-03-02 10:01 | W.ED.GENAD ---
Discharge Plan Disposition Patient Disposition: Home Discharge Details Clinical Impression: Encounter for medical assessment Primary Care Provider: Unknown,Unknown ED Provider: Chi Gonsales Home Meds and New Rx's Prescriptions: Continued acetaminophen [Tylenol Extra Strength] 500 mg tablet 1,000 mg PO Q6H PRN (Reason: pain) Qty: 30 0RF Patient Comments: pt states no longer taking 06/16/23 duloxetine 30 mg capsule, delayed rel sprinkle 90 mg PO DAILY quetiapine [Seroquel] 25 mg tablet 25 mg PO DAILY methadone 10 mg/mL concentrate 145 mg PO QDAY quetiapine [Seroquel] 50 mg tablet 50 mg PO DAILY quetiapine [Seroquel] 100 mg tablet 100 mg PO DAILY ibuprofen [IBU] 600 mg tablet 600 mg PO BID PRN cyclobenzaprine 5 mg tablet 5 mg PO BID PRN Discharge Instructions Additional Instructions: You were seen in the emergency department following your outpatient ECG which was similar to our ECG and that it showed poor R wave progression (less than or equal to 3 mm voltage in lead V3). This can be secondary to lead misplacement or a normal variant or also secondary to a prior injury to your heart. As we discussed if you develop chest pain shortness of breath any swelling in her legs or if you pass out or begin sweating please immediately return to the emergency department so that we can repeat your EKG and send some blood tests. In the absence of symptoms this incidental finding on your EKG is not concerning. HPI General Date/Time Provider Initiated Documentation: 03/02/25 10:00. HPI Narrative: [facility] This is an overall quite well-appearing normothermic tachycardic not hypoxic 34-year-old male with incidental finding of poor R wave progression on outpatient screening twelve-lead ECG for which patient will be discharged with empiric trial of expectant outpatient management. Patient is not short of breath and has no lower extremity edema so my suspicion for dilated cardiomyopathy is low. He is having no chest pain no shortness of breath no nausea no vomiting and no diaphoresis so I am not suspicious for acute myocardial infarction. His QTc is within normal limits which is reassuring given his use of methadone and quetiapine. He does have an ECG from earlier this year that does not show poor R wave progression. It certainly possible that he may have had misplaced anterior chest wall leads. He has no signs of LVH. He is not short of breath or having chest pain to suggest PE so not concern for acute right heart strain as I did not feel he required a D-dimer. In the absence of concerns for ACS I felt that the risks of a troponin outweigh the benefits. Patient and I discussed that if he did develop chest pain shortness of breath nausea or vomiting that he should return immediately to the emergency department. He understood his return indications and was discharged with an empiric trial of expectant outpatient management. HPI This is a 34-year-old male on outpatient quetiapine and methadone arrived to the emergency department in police custody from the nursing home following an ECG which was reportedly abnormal and concerning for septal infarct. Patient had newly lost his R wave in V2 and had poor R wave progression. He is having no chest pain no shortness of breath no nausea no vomiting no lower extremity edema. He denies complaints. He would not be in the emergency department were not for his ECG. He did not pass out. Exam General: Well-appearing in no acute distress speaking in complete sentences. Head: Normocephalic, atraumatic. Eye: Extraocular eye movements intact. No conjunctival injection. No scleral icterus. Ear, nose, mouth, throat: Grossly normal inspection. Normal voice, handling secretions normally. Neck: Trachea midline. Cardiovascular: Well-perfused distal extremities. Respiratory: Nonlabored respiration. Gastrointestinal: Nondistended abdomen. Musculoskeletal: No significant lower extremity pitting edema. Moving all 4 extremities spontaneously. Skin: Normal for age and race, grossly normal temperature and turgor. No acute rash. Neurologic: Alert and appropriate, no apparent acute deficits. Psychiatric: Mood and manner are appropriate. Grooming and personal hygiene are appropriate. Related Data Home Medications ?Medication ?Instructions ?Recorded ?Confirmed acetaminophen 500 mg tablet 1,000 mg (2 x 500 mg) PO Q6H PRN 08/18/18 03/02/25 (Tylenol Extra Strength) pain #30 tabs cyclobenzaprine 5 mg tablet 5 mg PO BID PRN 03/02/25 03/02/25 duloxetine 30 mg capsule,delayed 90 mg PO DAILY 03/02/25 03/02/25 release sprinkle ibuprofen 600 mg tablet (IBU) 600 mg PO BID PRN 03/02/25 03/02/25 methadone 10 mg/mL oral concentrate 145 mg PO QDAY 03/02/25 03/02/25 quetiapine 100 mg tablet (Seroquel) 100 mg PO DAILY 03/02/25 03/02/25 quetiapine 25 mg tablet (Seroquel) 25 mg PO DAILY 03/02/25 03/02/25 quetiapine 50 mg tablet (Seroquel) 50 mg PO DAILY 03/02/25 03/02/25 Previous Rx's ?Medication ?Instructions ?Recorded acetaminophen 500 mg tablet 1,000 mg (2 x 500 mg) PO Q6H PRN 08/18/18 (Tylenol Extra Strength) pain #30 tabs Allergies Allergy/AdvReac Type Severity Reaction Status Date / Time prednisone AdvReac Intermediate increased Unverified 03/02/25 10:06 heart rate codeine AdvReac Mild headache/stomach Unverified 03/02/25 10:06 ache Penicillins AdvReac Mild headache/st Unverified 03/02/25 10:06 omachache clindamycin AdvReac Diarrhea Unverified 03/02/25 10:06 General BRIAN: 4 Medical Decision Making Quality:SDOH Health Related Social Needs: Health related social needs details Incarcerated [facility] All Active Problems (Updated 03/02/25 @ 10:20 by Chi Gonsales MD) Encounter for medical assessment (Acute) Cyclothymia (Acute) Opioid use disorder, moderate, on maintenance therapy, dependence (Acute) PTSD (post-traumatic stress disorder) (Acute) Tobacco use disorder (Acute 09/08/15) Began age 13, 1ppd Sleeping difficulty (Acute 12/22/15) Anxiety, unmanaged ADHD and restless legs are the reported main reason for sleeping difficulty. Restless legs (Acute 12/22/15) Lyrica supposedly helped, but Neuro consult requested. He is now on DIEGO, may re-start Lyrica once DIEGO Rx completed. Opioid dependence (Acute 09/08/15) began age 14, IV usage reports to be off all opioids/heroin/methadone, -09/2017. note: recent methadone relapse, spring 2016 Hepatitis C (Acute 09/08/15) Back pain of thoracolumbar region (Acute 12/22/15) Hx scoliosis Attention-deficit hyperactivity disorder, unspecified type (Acute 09/08/15) Per chart review: Fabian was diagnosed with ADHD by Dr. Jose his professor of special education. No known psych evaluation. Hx of Wellbutrin XL BID. Per Fabian .. has done well with Focalin. Vyvanse did not work well for him (discussed 10/12/17, ik) Anxiety (Acute 09/14/15) Has not seen counselor/theerapist in weeks. Anxiety reported to stem from unmanaged ADHD .. Pt claims he remains clear of past negative associates/contacts and avoids alcohol/substances, even asking acquaintances who may be drunk to leave. 09/2017 Medical History (Updated 03/02/25 @ 10:20 by Chi Gonsales MD) Tobacco abuse disorder Restless legs Anxiety Hepatitis C ADHD (attention deficit hyperactivity disorder) Opioid dependence Family History Mother Alcohol abuse Father Alcohol abuse Social History Smoking/Tobacco Use Status: Current every day Tobacco Type: cigarettes Smoking risk assessment performed?: Yes Alcohol Intake: former Drug use: Daily Substance use type: marijuana Details: Currently incarcerated Housing: other Do you feel safe at home: Yes Do you feel safe in your relationship?: Yes
[2025-03-02 10:17] VITALS: BP 142/94; PULSE 90; RESP 20; TEMP 36.9; O2SAT 98; O2SAT 99
== END 2025-03-02 10:17 | disposition home or self-care (01) ==
PROVIDERS: Emergency Provider Emergency Medicine
DX: Z71.1 Person with feared health complaint in whom no diagnosis is made (principal)
CPT/HCPCS: 99283; 99285; 93005; 93010

== ENCOUNTER 2025-05-08 01:03 | Outpatient (CLI) | payer OTHER, SELFPAY ==
--- NOTE | 2025-05-08 | ETT_ITS ---
APPROVED REPORT Exam: Exercise Treadmill Patient Location: Out-Patient Room/Bed: Stress Nurse: Bernadette West RN Ordering Provider:MARISSAPAO CASTAÑEDA, Contact Number: [phone] BMI: 29.56 Baseline Rhythm: Sinus Rhythm Indications: Palpitations, recurrent heart racing, ? possible septal infarct Medical History Medical History: Tobacco abuse disorder, anxiety, RLS, Hepatitis C, ADHD, opiod dependence, PTSD, cyclothymia Cardiac Medications: Cyclobenzaprine, duloxetine, methadone, seroquel Allergies: Prednisone, codeine, penicillins, clindamycin Cardiac Risk Factors: smoker Previous Cardiac Procedures: None Pretest Chest Pain Characteristics: None Exercise History: Indeterminate Physical Disabilities: None Lung Sounds: Clear to auscultation Heart Sounds: Regular Stress Test Details Test: Exercise stress testing was performed using a Jw protocol. Rest Stress HR Resting HR Supine: 84 bpm Max Heart Rate (APMHR): 183 bpm Resting HR Standin bpm Target HR (85% APMHR): 156 bpm Max HR Achieved: 176 bpm % of APMHR: 96 Recovery HR: 95 bpm HR response to stress: Normal HR response to stress BP Resting BP Supine: 132/92 mmHg Resting BP Standin/90 mmHg Max BP: 178/92 mmHg Recovery BP: 138/82 mmHg BP response to stress: Normal blood pressure response to stress. ECG Resting ECG: Sinus Rhythm Stress ECG: Sinus Tachycardia ST Change: No significant ST segment changes noted Recovery ECG: Sinus Rhythm Recovery ST Change: No significant ST segment changes noted Recovery Arrhythmia: Rare PAC's, occasional multifocal PVC's, couplets, bigeminy Clinical Reason for Termination: Target HR Achieved, staff concern r/t balance Stress Symptoms: General Fatigue Exercise duration: 08 min57 sec Highest Stage Reached: Stage 3: 3.4 mph at 14% grade. Exercise capacity: 10.16 METs Angina Score: None Rate Pressure Product: 21756 Stress ECG Conclusion 1. Resting electrocardiogram is normal 2. Patient exercised on the Jw protocol and completed workload of 10 METS 3. Normal heart rate and blood pressure response to exercise. The patient achieved 96% of maximal predicted heart rate for age 4. There was no electrocardiographic evidence of myocardial ischemia 5. There were no significant dysrhythmias Stress Test Summary STAGE Time (mins) Speed (mph) Grade (%) HR BP SpO2 SYMPTOMS METS Supine 84 132/92 95% Standing 109 126/90 1 3 1.7 10 140 138/84 96% 4.5 2 6 2.5 12 164 168/78 96% 7 3 9 3.4 14 174 10 1 min recovery 162 160/98 3 min recovery 95 178/92 97% 6 min recovery 95 138/82 Patient met 96% of max HR and c/o of mild leg and arm fatigue. Staff ended test r/t balance concerns on treadmill. All symptoms resolved and patient left ambulatory in no apparent distress.
== END 2025-05-08 01:23 ==
LOC: DI 01:04
PROVIDERS: Visit Provider Internal Medicine Cardiovascular Disease
DX: R00.2 Palpitations (principal)
CPT/HCPCS: 93017